=== PATIENT | female | born 2000 | race Caucasian/White ===

== ENCOUNTER 2023-05-02 12:07 | Emergency (ER) | payer BC, SELFPAY ==
[2023-05-02 12:12] VITALS: BP 135/73
[2023-05-02 12:58] LABS: % Basophils 0.7 % (0-2); % Eosinophils 3.4 % (0-6); % Immature Granulocytes 0.3 % (0-0.5); % Lymphocytes 27.3 % (20.5-51.1); % Monocytes 6.7 % (1.7-9.3); % Neutrophils 61.6 % (42.2-75.2); Absolute Eosinophils 0.2 10^3/uL (0-0.7); Absolute Lymphocytes 1.6 10^3/uL (1.2-3.4); Absolute Monocytes 0.4 10^3/uL (0.1-0.6); Absolute Neutrophils 3.7 10^3/uL (1.4-6.5); Hematocrit 35.6 % (37.0-47.0); Hemoglobin 12.3 g/dL (12.0-16.0); Mean Corp Hgb Conc. 34.6 g/dL (33.0-37.0); Mean Corpuscular Hgb 30.5 pg (27.0-31.0); Mean Corpuscular Volume 88.3 fL (81.0-99.0); Mean Platelet Volume 9.1 fL (7.4-10.4); Nucleated Red Blood Cells % 0 %; Platelet Count 290 10^3/uL (130-400); Red Blood Cell Count 4.03 10^6/uL (4.20-5.40); Red Cell Dist. Width 12.3 % (11.5-14.5); White Blood Cell Count 5.9 10^3/uL (4.8-10.8)
[2023-05-02 13:08] LABS: HCG, Serum Qualitative Screen Negative
[2023-05-02 13:12] LABS: Blood Urea Nitrogen 17 mg/dl (7-17); Calcium 9.5 mg/dl (8.4-10.2); Carbon Dioxide 26 mmol/L (22-30); Chloride 103 mmol/L (98-107); Glucose 97 mg/dl (70-99); Potassium 4.6 mmol/L (3.5-5.1); Sodium 136 mmol/L (135-145); eGFR > 60.00
[2023-05-02 13:19] LABS: Urine Albumin Negative (Neg - Trace); Urine Bilirubin Negative (Negative); Urine Character Clear (Clear); Urine Color Yellow; Urine Glucose Negative (Negative); Urine Ketone Negative (Negative); Urine Leukocyte Negative (Negative); Urine Nitrite Negative (Negative); Urine Occult Blood 4+ (Negative); Urine Specific Gravity 1.025 (<1.030); Urine Urobilinogen Negative (Neg - 1+)
--- NOTE | 2023-05-02 13:39 | ED.GENMED ---
History of Present Illness
General
Chief Complaint: Vaginal Bleeding
Source: patient
Exam Limitations: none
Time Seen by Provider: 05/02/23 12:28
Nursing documentation reviewed up to this point in time: agreed with
Travel History
Have you had any contact with someone who has COVID-19?: No
Do you have any symptoms of coronavirus? Fever > 100 degrees, chills, cough, shortness of breath, sore throat, loss of taste or smell, muscle aches, or headache?: No
History of Present Illness
History of Present Illness:
22-year-old female past medical history of anxiety depression presenting to the emergency department today with concerns of potential miscarriage considering there was a amount of tissue that came out last night on the second day of what she
believes was her menstrual cycle. She was on control pills up until 2 months ago. Denies any ongoing pain no additional concerns
Past History
Past History
ED Past Surgical History: None
Patient has exhibited threatening behavior?: No
PSI?: No
Review of Systems
Review of Systems
Allergies reviewed?: Yes
All Other Systems: ROS reviewed and negative except as documented in HPI and ROS
Phy Exam
Physical Exam
Physical Exam:
GENERAL: Alert , in no apparent distress
EYE: pupils equal and reactive
NECK: Supple, no significant adenopathy.
ENT: o/p clr, mmm.
CARDIAC: Regular rate and rhythm .
LUNGS: Clear breath sounds bilaterally, no acute respiratory distress, no wheezes/rales/rhonchi
ABDOMEN: Soft, without focal tenderness, no r/g, no cvat
NEUROLOGICAL: Alert and oriented, no focal neuro deficits
SKIN: Warm and dry, skin intact.
MUSCULOSKELETAL: No edema, well perfused.
PSYCH: Normal and appropriate interaction.
Course
Orders/Labs/Results
Orders:
Orders
05/02/23 12:28
Test Result ONCE
05/02/23 12:43
Type+Screen Urgent
BMP [Basic Metabolic Panel] Urgent
Beta Hcg Serum Qualitative Screen [HCG, Serum Qualitative Screen] Urgent
CBC/With Diff [Complete Blood Count/With Diff] Urgent
Urinalysis Reflex To Culture Urgent
Date Specimen was Collected: 05/02/23
Time Specimen was Collected: 12:29
Urine Microscopic Reflex Cult Urgent
Abnormal Lab Results
05/02/23
12:43
RBC 4.03 L 10^6/uL
(4.20-5.40)
Hct 35.6 L %
(37.0-47.0)
Ur Occult Blood Reflex 4+ A
(Negative)
05/02/23 12:43
05/02/23 12:43
Vital Signs
Initial and Last Documented VS:
Initial Vital Signs
Temp Pulse Resp BP Pulse Ox
98.3 F 60 18 135/73 97
05/02/23 12:12 05/02/23 12:12 05/02/23 12:12 05/02/23 12:12 05/02/23 12:12
Last Documented Vital Signs
Temp Pulse Resp BP Pulse Ox
98.3 F 60 18 135/73 97
05/02/23 12:12 05/02/23 12:12 05/02/23 12:12 05/02/23 12:12 05/02/23 12:12
MDM/Problems Addressed
MDM/Problems Addressed:
22-year-old female presenting to the emergency department today with concerns of tissue that came out on her second day of her period. She was on control pills and did not have a regular cycle for many months prior to the past 2 months. She
showed me a picture of this. Appear to be consistent with a mucous membrane potentially consistent with decidual cast. test were negative. No ongoing symptoms at this point. Case was discussed with gynecology claims that she can
follow-up but otherwise no additional emergent treatment needed for this.
*Critical Care Note
Total Time (30-74mins, 75-104mins- exclusive of procedures): Not Applicable
ED Attending Note
-
Portions of this chart may have been created with voice recognition software.� Occasional wrong word or��sound alike� substitutions may have occurred due to the inherent limitations of voice recognition software.
Discharge Plan
Departure
Patient Disposition: Home (Routine Discharge)
Date of Disposition: 05/02/23
Time of Disposition: 13:43
Patient with high blood pressure during this ER visit?: No
Condition: Good
Covid-19: Not Applicable
Discharge Problem:
Decidual cast
Instructions: Heavy Periods (DC)
Referrals:
NONE,* [Family Provider] -
Humaira Fu MD [Active] - Follow up in 5-7 days
Activity Restrictions/Additional Instructions:
You came to the emergency department today with concerns of tissue discharge last night. This is likely a decidual cast and does not represent anything life-threatening. You should have an ongoing normal. You can follow-up with gynecology. Your
test was negative today.
Interventions
Interventions:
*Risk Screen - Suicide Last Done: 05/02/23 12:12
*General Assessment Last Done: 05/02/23 12:12
*Neglect/Abuse Screening Last Done: 05/02/23 12:12
ED-Female Genitourinary Assessment Last Done: 05/02/23 13:01
[2023-05-02 14:46] LABS: Urine Amorphous Seen; Urine Mucus Few
[2023-05-02 14:47] LABS: Urine Bacteria Few (Negative); Urine White Cell 0-2 /HPF (0-5)
== END 2023-05-02 14:20 | disposition home or self-care (01) ==
LOC: EMR 12:07
PROVIDERS: Physician Assistant; EMERGENCY PHYSICIAN Emergency Medicine
DX: N85.8 Other specified noninflammatory disorders of uterus (principal); N93.9 Abnormal uterine and vaginal bleeding, unspecified
CPT/HCPCS: 99283; 80048; 81003; 81015; 84703; 85025; 86850; 86900; 86901